=== PATIENT | female | born 2000 | race Two or more races ===

== ENCOUNTER 2020-08-07 12:56 | Emergency (ER) | payer MEDICAID ==
[2020-08-07 13:03] VITALS: BP 146/92
[2020-08-07] MEDS ORDERED: NORMAL SALINE 1000 ML 1,000 ML IV ONE (13:11)
[2020-08-07] MEDS ORDERED: ONDANSETRON 4 MG TAB.RAPDIS PO ONE (13:11)
--- NOTE | 2020-08-07 13:13 | ER Document Report ---
ED Medical Screen (RME) - General Chief Complaint: Nausea/Vomiting Stated Complaint: HEADACHE,VOMITING,DIARRHEA Time Seen by Provider: 08/07/20 13:07 Mode of Arrival: Ambulatory Information source: Patient Notes: 20-year-old female presents to ED for nausea vomiting diarrhea. She states she woke up at 4 AM and she had nausea and vomiting diarrhea. States she was finally able to go back to sleep and she woke up she was hot and cold tried to eat and vomited up a banana. She states she had body aches all over. She states her last menstrual cycle was July 21. She states she is not on any control. Patient is alert oriented respirations regular nonlabored speaking in full sentences. I have ordered blood urine chest x-ray and cover testing. I have also ordered IV fluids and Zofran ODT. I have greeted and performed a rapid initial assessment of this patient. A comprehensive ED assessment and evaluation of the patient, analysis of test results and completion of medical decision making process will be conducted by an additional ED providers. Past Medical History - Social History Chew tobacco use (# tins/day): No Frequency of alcohol use: None Drug Abuse: None Physical Exam - Vital signs Vitals: Temp Pulse Resp BP Pulse Ox 100.0 F 114 H 16 146/92 H 99 08/07/20 13:01 08/07/20 13:01 08/07/20 13:01 08/07/20 13:01 08/07/20 13:01 Course - Vital Signs Vital signs: Temp Pulse Resp BP Pulse Ox 100.0 F 114 H 16 146/92 H 99 08/07/20 13:01 08/07/20 13:01 08/07/20 13:01 08/07/20 13:01 08/07/20 13:01
--- NOTE | 2020-08-07 14:28 | RADIOLOGY REPORT (SQ) ---
EXAM DESCRIPTION: CHEST SINGLE VIEW IMAGES COMPLETED DATE/TIME: 08/07/2020 2:07 pm REASON FOR STUDY: body aches hot and cold COMPARISON: None. EXAM PARAMETERS: NUMBER OF VIEWS: One view. TECHNIQUE: Single frontal radiographic view of the chest acquired. RADIATION DOSE: NA LIMITATIONS: None. FINDINGS: LUNGS AND PLEURA: No opacities, masses or pneumothorax. No pleural effusion. MEDIASTINUM AND HILAR STRUCTURES: No masses. Contour normal. HEART AND VASCULAR STRUCTURES: Heart normal in size. Normal vasculature. BONES: No acute findings. HARDWARE: None in the chest. OTHER: No other significant finding. IMPRESSION: NO ACUTE RADIOGRAPHIC FINDING IN THE CHEST. TECHNICAL DOCUMENTATION: JOB ID: [id number] 2010 [employer]- All Rights Reserved Reading location - IP/workstation name: [email or web address]
== END 2020-08-07 16:00 | disposition left against medical advice (07) ==
LOC: ER 12:56
DX: R11.2 Nausea with vomiting, unspecified (principal); R19.7 Diarrhea, unspecified; R51.9 Headache, unspecified
CPT/HCPCS: 71045; 99281

== ENCOUNTER 2020-09-02 10:42 | Emergency (ER) | payer MEDICAID ==
--- NOTE | 2020-09-02 11:42 | ER Document Report ---
ED General - General Chief Complaint: Cough Stated Complaint: COUGH Time Seen by Provider: 09/02/20 11:31 Notes: 20-year-old female smoker presents with cough shortness of breath and chest pressure for 2 days. Feels wheezy as well. Never use inhaler never diagnosed with asthma. No change to taste or smell and no fever. Past Medical History - General Information source: Patient - Social History Smoking Status: Current Some Day Smoker Smoking Education Provided: Yes - The patient ED visit today was directly related to their abuse of tobacco. Family History: None Patient has homicidal ideation: No Review of Systems - Review of Systems Notes: REVIEW OF SYSTEMS GEN: Denies fever, chills, weight loss ENT: Denies sore throat, nasal discharge, ear pain EYES: Denies blurry vision, eye pain, discharge CV: Denies chest pain, palpitations, edema RESP: Cough shortness of breath and wheezing eezing GI: Denies abdominal pain, nausea, vomiting, diarrhea MSK: Denies joint pain/swelling, edema, SKIN: Denies rash, skin lesions LYMPH: Denies swollen glands/lymph nodes NEURO: Denies headache, focal weakness or numbness, dizziness PSYCH: Denies depression, suicidal or homicidal ideation PHYSICAL EXAMINATION General: No acute distress, well-nourished Head: Atraumatic, normocephalic ENT: Mouth normal, oropharynx moist, no exudates or tonsillar enlargement Eyes: Conjunctiva normal, pupils equal, lids normal Neck: No JVD, supple, no guarding CVS: Normal rate, regular rhythm, no murmurs Resp: End expiratory wheezing bilaterally ilaterally GI: Nondistended, soft, no tenderness to palpation, no rebound or guarding Ext: No deformities, no edema, normal range of motion in upper and lower ext Back: No CVA or midline TTP Skin: No rash, warm Lymphatic: No lymphadeopathy noted Neuro: Awake, alert. Face symmetric. GCS 15. Physical Exam - Vital signs Vitals: Temp Pulse Resp BP Pulse Ox 98.0 F 94 16 141/67 H 99 09/02/20 10:46 09/02/20 10:46 09/02/20 10:46 09/02/20 10:46 09/02/20 10:46 Course - Re-evaluation Re-evalutation: 09/02/20 11:40 Acute bronchitis in setting of smoking Covid PUI rule out but looks well and can go home either way X-ray rules out pneumonia Tessalon albuterol were sent Refused work note I have discussed with the patient there likely diagnosis, aftercare plan, follow-up plans and my usual and customary return precautions. They verbalized understanding of this. - Vital Signs Vital signs: Temp Pulse Resp BP Pulse Ox 98.0 F 108 H 16 128/92 H 95 09/02/20 12:10 09/02/20 12:10 09/02/20 12:10 09/02/20 12:10 09/02/20 12:10 - Diagnostic Test Radiology reviewed: Image reviewed, Reports reviewed Discharge - Discharge Clinical Impression: Viral bronchitis, Tobacco abuse Condition: Good Disposition: HOME, SELF-CARE Instructions: COVID-19 Guidance for Persons Under Investigation, Bronchitis With Bronchospasm (Wheezing) (OM) Prescriptions: Benzonatate [Tessalon Perles 100 mg Capsule] 100 mg PO Q8HP PRN #40 capsule PRN Reason: Albuterol Sulfate [Ventolin Hfa 8 gm Mdi] 2 puff IH Q4 #1 inhaler
[2020-09-02 12:12] VITALS: BP 128/92
--- NOTE | 2020-09-02 12:44 | RADIOLOGY REPORT (SQ) ---
EXAM DESCRIPTION: CHEST SINGLE VIEW IMAGES COMPLETED DATE/TIME: 09/02/2020 12:33 pm REASON FOR STUDY: COUGH, SOB COMPARISON: 08/07/2020 EXAM PARAMETERS: NUMBER OF VIEWS: One view. TECHNIQUE: Single frontal radiographic view of the chest acquired. RADIATION DOSE: NA LIMITATIONS: None. FINDINGS: LUNGS AND PLEURA: No opacities, masses or pneumothorax. No pleural effusion. MEDIASTINUM AND HILAR STRUCTURES: No masses. Contour normal. HEART AND VASCULAR STRUCTURES: Heart normal in size. Normal vasculature. BONES: No acute findings. HARDWARE: None in the chest. OTHER: No other significant finding. IMPRESSION: NO ACUTE RADIOGRAPHIC FINDING IN THE CHEST. TECHNICAL DOCUMENTATION: JOB ID: [id number] 2010 [employer]- All Rights Reserved Reading location - IP/workstation name: [email or web address]
== END 2020-09-02 12:13 | disposition home or self-care (01) ==
LOC: ER 10:42
DX: J20.8 Acute bronchitis due to other specified organisms (principal); R06.02 Shortness of breath; R07.9 Chest pain, unspecified; F17.200 Nicotine dependence, unspecified, uncomplicated
CPT/HCPCS: 71045; 99283

== ENCOUNTER 2020-10-05 15:46 | Emergency (ER) | payer MEDICAID ==
[2020-10-05 15:55] VITALS: BP 136/82
[2020-10-05] MEDS ORDERED: IPRATROPIUM/ALBUTEROL 0.5-2.5 MG/3 ML AMPUL NEB ONE (16:01)
[2020-10-05] MEDS ORDERED: DEXAMETHASONE SOD PHOS INJ 10 MG/1 ML VIAL IM ONE (16:01)
[2020-10-05] MEDS ORDERED: ALBUTEROL SULFATE HFA (90 MCG/PUFF) 8 GM MDI (1 MDI/ER DISP) IH ONE (16:01)
--- NOTE | 2020-10-05 16:02 | ER Document Report ---
ED Medical Screen (RME) - General Chief Complaint: Shortness Of Breath Stated Complaint: SHORTNESS OF BREATH Time Seen by Provider: 10/05/20 15:55 Mode of Arrival: Ambulatory Information source: Patient Physical Exam - Vital signs Vitals: Temp Pulse Resp BP Pulse Ox 98.0 F 89 18 136/82 H 96 10/05/20 15:54 10/05/20 15:54 10/05/20 15:54 10/05/20 15:54 10/05/20 15:54 Course - Vital Signs Vital signs: Temp Pulse Resp BP Pulse Ox 98.0 F 89 18 136/82 H 96 10/05/20 15:54 10/05/20 15:54 10/05/20 15:54 10/05/20 15:54 10/05/20 15:54
--- NOTE | 2020-10-05 16:11 | ER Document Report ---
ED Respiratory Problem - General Chief Complaint: Shortness Of Breath Stated Complaint: SHORTNESS OF BREATH Time Seen by Provider: 10/05/20 15:55 Primary Care Provider: [facility] [Provider Group] - Follow up as needed [facility] [Provider Group] - Follow up as needed [facility] [Provider Group] - Follow up as needed [facility] [Provider Group] - Follow up as needed ELIUD CROWELL MD [ACTIVE STAFF] - Follow up as needed FROILAN PUCKETT MD [ACTIVE STAFF] - Follow up as needed Mode of Arrival: Ambulatory Information source: Patient Notes: 20-year-old female presents to ED for complaint of shortness of breath wheezing. She states she had a similar symptoms about a month ago she was seen in the emergency room got a asthma pump and was much better. She is run out of her asthma pump and has not followed up with her primary care doctor. She states that shortness of breath started again yesterday. She does not have any albuterol inhaler at home. Has not been to her primary doctor she is having bilateral inspiratory and expiratory wheezes. Constitutional: Negative for fever. HENT: Negative for sore throat. Eyes: Negative for visual changes. Cardiovascular: Negative for chest pain. Respiratory: Cough shortness of breath wheezing history of asthma, no congestion no change in sense of smell or taste no symptoms of Covid Gastrointestinal: Negative for abdominal pain, vomiting or diarrhea. Genitourinary: Negative for dysuria. Musculoskeletal: Negative for back pain. Skin: Negative for rash. Neurological: Negative for headaches, weakness or numbness. 10 point ROS negative except as marked above and in HPI. PHYSICAL EXAMINATION: GENERAL: Well-appearing, well-nourished and in no acute distress. HEAD: Atraumatic, normocephalic. EYES: Pupils equal round extraocular movements intact, conjunctiva are normal. ENT: Nares patent NECK: Normal range of motion LUNGS: Nonproductive cough wheezing short of breath Musculoskeletal: Normal range of motion NEUROLOGICAL: Normal speech, normal gait. PSYCH: Normal mood, normal affect. SKIN: Warm, Dry, normal turgor, no rashes or lesions noted. - HPI Patient complains to provider of: Cough, Short of breath Onset: Yesterday Duration: Intermittent episodes Quality of pain: No pain Severity: None Pain Level: Denies Chest pain/discomfort: Tightness Cough: Nonproductive Sputum amount: None Associated symptoms: Short of breath, Wheezing Similar symptoms previously: Yes Recently seen / treated by doctor: No - Related Data Allergies/Adverse Reactions: No Known Allergies Allergy (Unverified 10/05/20 16:15) Past Medical History - General Information source: Patient - Social History Smoking Status: Former Smoker Frequency of alcohol use: None Drug Abuse: None Lives with: Alone Family History: None, Reviewed & Not Pertinent - Past Medical History Cardiac Medical History: Reports: None Pulmonary Medical History: Reports: Hx Asthma EENT Medical History: Reports: None Neurological Medical History: Reports: None Endocrine Medical History: Reports: None Renal/ Medical History: Reports: None Malignancy Medical History: Reports: None GI Medical History: Reports: None Musculoskeletal Medical History: Reports None Skin Medical History: Reports None Psychiatric Medical History: Reports: None Traumatic Medical History: Reports: None Infectious Medical History: Reports: None Surgical Hx: Negative Past Surgical History: Reports: None - Immunizations Immunizations up to date: No Hx Diphtheria, Pertussis, Tetanus Vaccination: No Physical Exam - Vital signs Vitals: Temp Pulse Resp BP Pulse Ox 98.0 F 89 18 136/82 H 96 10/05/20 15:54 10/05/20 15:54 10/05/20 15:54 10/05/20 15:54 10/05/20 15:54 Course - Re-evaluation Re-evalutation: 10/05/20 16:12 We will get chest x-ray give DuoNeb and albuterol inhaler. I will also give her a shot of Decadron. Patient has been instructed adamantly to follow-up with a primary care to get on asthma protocol. Patient has verbalized agreement with this plan. Will reassess after treatment and x-ray. 10/05/20 21:59 She was breathing much easier. X-ray was negative patient was discharged home with the albuterol inhaler and instructed to follow-up with a primary care for her asthma. Patient verbalized understanding and agreement with treatment plan. - Vital Signs Vital signs: Temp Pulse Resp BP Pulse Ox 98.0 F 89 18 136/82 H 96 10/05/20 15:54 10/05/20 15:54 10/05/20 15:54 10/05/20 15:54 10/05/20 15:54 - Diagnostic Test Radiology reviewed: Image reviewed, Reports reviewed Discharge - Discharge Clinical Impression: Asthma Qualifiers: Asthma severity: mild Asthma persistence: intermittent Asthma complication type: with acute exacerbation Qualified Code(s): J45.21 - Mild intermittent asthma with (acute) exacerbation Condition: Stable Disposition: HOME, SELF-CARE Additional Instructions: ASTHMA: You have been diagnosed as having asthma. This is a condition where there is episodic tightness in the bronchial tubes. Allergies, infections, and polluted or cold air may be contributing factors. Emergency treatment of a severe asthma attack may include adrenaline shots, or bronchodilator aerosol. You may feel lightheaded, have a decreased exercise tolerance and a rapid pulse for an hour or two. Rest and get plenty of fluids. Home treatment of asthma requires bronchodilator drugs. These can be administered by injection, inhalation, or by mouth. Antibiotics and corticosteroids may be required for some patients. You should avoid chemical fumes, dusts, pollens, and exercising in very cold or dry air. If you smoke, stop!! If you develop a fever, increased wheezing, chest pain, or severe shortness of breath, you should contact the doctor immediately. STEROID MEDICATION: You have been given an injection of or oral medicine of the cortisone/steroid class. This medication is used to control inflammation or allergy. Jey t is usually only given for a short period of time, until the acute process subsides. There are usually no side effects from short-term use of cortisone-like medications. Some persons feel an increased sense of well-being and are not sleepy at bedtime. Long-term use of cortisone medications is best avoided, unless required for a severe condition. If your condition does not remit, or relapses after the course of corticosteroid medication, you should consult your physician. INHALED BRONCHODILATORS: You have received treatment(s) of and/or prescription for an inhaled bronchodilator -- a medication which stimulates the airways in the lung to dilate. This improves the flow of air in asthma, bronchitis, and emphysema. These medicines have some similarity to adrenaline, and can cause similar side effects: shakiness, racing heart, and a sense of nervousness. These side effects decrease with time. Contact your doctor if these side effects are severe. Do not over-use the medicine. Too-frequent use of the inhaler may make it ineffective. Call your doctor if the inhaler is not controlling your symptoms at the prescribed doses. USE OF ACETAMINOPHEN (Tylenol): Acetaminophen may be taken for pain relief or fever control. It's much safer than aspirin, offering a wider range of "safe" dosages. It is safe during . Some brand names are Tylenol, Panadol, Datril, Anacin 3, Tempra, and Liquiprin. Acetaminophen can be repeated every four hours. The following are maximum recommended dosages: WEIGHT Dose Drops Elixir Chewable(80mg) (LBS.) drprs=droppers tsp=teaspoon 6 40 mg 0.4 ml (1/2) 6-11 80 mg 0.8 ml (full) tsp 1 tab 12-16 120 mg 1 1/2 drprs 3/4 tsp 1 1/2 tabs 17-23 160 mg 2 drprs 1 tsp 2 tabs 24-30 240 mg 3 drprs 1 1/2 tsp 3 tabs 30-35 320 mg 2 tsp 4 tabs 36-41 360 mg 2 1/4 tsp 4 1/2 tabs 42-47 400 mg 2 1/2 tsp 5 tabs 48-53 480 mg 3 tsp 6 tabs 54-59 520 mg 3 1/4 tsp 6 1/2 tabs 60-64 560 mg 3 1/2 tsp 7 tabs 65-70 600 mg 3 3/4 tsp 7 1/2 tabs 71-76 640 mg 4 tsp 8 tabs 77-82 720 mg 4 1/2 tsp 9 tabs 83-88 800 mg 5 tsp 10 tabs >89 pounds or adults 650 mg to 900 mg Acetaminophen can be repeated every four hours. Maximum dose not to exceed 4000 mg a day. These maximum recommended dosages are slightly higher than the dosages written on the product container, but these dosages are very safe and below the toxic dosage for acetaminophen. FOLLOW-UP CARE: If you have been referred to a physician for follow-up care, call the physicians office for an appointment as you were instructed or within the next two days. If you experience worsening or a significant change in your symptoms, notify the physician immediately or return to the Emergency Department at any time for re-evaluation. Forms: Elevated Blood Pressure Referrals: [facility] [Provider Group] - Follow up as needed [facility] [Provider Group] - Follow up as needed [facility] [Provider Group] - Follow up as needed ELIUD CROWELL MD [ACTIVE STAFF] - Follow up as needed FROILAN PUCKETT MD [ACTIVE STAFF] - Follow up as needed [facility] [Provider Group] - Follow up as needed
--- NOTE | 2020-10-05 16:19 | RADIOLOGY REPORT (SQ) ---
EXAM DESCRIPTION: CHEST 2 VIEWS IMAGES COMPLETED DATE/TIME: 10/05/2020 4:12 pm REASON FOR STUDY: Short of breath asthma COMPARISON: 09/02/2020 EXAM PARAMETERS: NUMBER OF VIEWS: two views TECHNIQUE: Digital Frontal and Lateral radiographic views of the chest acquired. RADIATION DOSE: NA LIMITATIONS: none FINDINGS: LUNGS AND PLEURA: No opacities, masses or pneumothorax. No pleural effusion. MEDIASTINUM AND HILAR STRUCTURES: No masses or contour abnormalities. HEART AND VASCULAR STRUCTURES: Heart normal size. No evidence for failure. BONES: No acute findings. HARDWARE: None in the chest. OTHER: No other significant finding. IMPRESSION: NO ACUTE RADIOGRAPHIC FINDING IN THE CHEST. TECHNICAL DOCUMENTATION: JOB ID: [id number] 2010 [employer]- All Rights Reserved Reading location - IP/workstation name: [email or web address]
[2020-10-05] MEDS ORDERED: DEXAMETHASONE SOD PHOSPHATE INJ 4 MG/1 ML VIAL IM ONE (16:30)
== END 2020-10-05 16:37 | disposition home or self-care (01) ==
LOC: ER 15:46
DX: J45.21 Mild intermittent asthma with (acute) exacerbation (principal); R06.02 Shortness of breath; R05 Cough; Z87.891 Personal history of nicotine dependence
CPT/HCPCS: 94640; 99284; 96372; 71046; J1100; J3490

== ENCOUNTER 2020-11-18 22:31 | Emergency (ER) | payer MEDICAID ==
[2020-11-18 22:38] VITALS: BP 141/113
--- NOTE | 2020-11-19 01:15 | ER Document Report ---
Doctor's Note Notes: Patient left prior to being seen. When I arrived to see the patient, I was informed that she had already left.
== END 2020-11-19 01:13 | disposition left against medical advice (07) ==
LOC: ER 22:31
DX: Z53.21 Procedure and treatment not carried out due to patient leaving prior to being seen by health care provider (principal)

== ENCOUNTER 2020-11-19 01:34 | Emergency (ER) | payer MEDICAID ==
[2020-11-19 01:39] VITALS: BP 138/87
[2020-11-19] MEDS ORDERED: ALBUTEROL SULFATE 0.083% NEB 2.5 MG/3 ML AMPUL NEB ONE (01:47)
[2020-11-19] MEDS ORDERED: ALBUTEROL SULFATE HFA (90 MCG/PUFF) 8 GM MDI (1 MDI/ER DISP) IH ONE (01:58)
--- NOTE | 2020-11-19 01:58 | ER Document Report ---
ED General - General Stated Complaint: DIFFICULTY BREATHING Time Seen by Provider: 11/19/20 01:58 - HPI Notes: 20-year-old female presents with shortness of breath. Patient states she has a history of asthma, which is a new diagnosis for her since she moved to [place]. She states that she was here in the emergency department earlier for shortness of breath and wheezing. She states that she felt better and left the emergency department. However when she went home and went to go to bed she began feeling symptomatic in. She is out of her albuterol MDI. She is due to see her primary care doctor tomorrow. Denies fever, chills, productive cough, chest pain, abdominal pain, N/V/D or Covid exposures. - Related Data Allergies/Adverse Reactions: No Known Allergies Allergy (Unverified 10/05/20 16:15) Past Medical History - General Information source: Patient - Social History Smoking Status: Unknown if Ever Smoked Family History: Reviewed & Not Pertinent Pulmonary Medical History: Reports: Hx Asthma - Immunizations Immunizations up to date: No Hx Diphtheria, Pertussis, Tetanus Vaccination: No Review of Systems - Review of Systems Constitutional: denies: Fever EENT: No symptoms reported Cardiovascular: denies: Chest pain Respiratory: Short of breath, Wheezing Gastrointestinal: No symptoms reported Genitourinary: No symptoms reported Female Genitourinary: No symptoms reported Musculoskeletal: No symptoms reported Skin: No symptoms reported Hematologic/Lymphatic: No symptoms reported Neurological/Psychological: No symptoms reported Physical Exam - Vital signs Vitals: Temp Pulse BP Pulse Ox 97.6 F 121 H 138/87 H 95 11/19/20 01:38 11/19/20 01:38 11/19/20 01:38 11/19/20 01:38 - General General appearance: Appears well, Alert In distress: None - HEENT Head: Normocephalic, Atraumatic Extraocular movements intact: Yes Pupils: PERRL - Respiratory Respiratory status: No respiratory distress, Other - Speaking in full sentences. No: Retractions, Tachypnea Breath sounds: Wheezing - Faint end expiratory - Cardiovascular Rhythm: Tachycardia - Receiving neb treatment Heart sounds: Normal auscultation - Abdominal Inspection: No: Obese - Extremities General upper extremity: Normal ROM General lower extremity: Normal ROM - Neurological Neuro grossly intact: Yes Cognition: Normal Orientation: AAOx4 - Psychological Associated symptoms: Normal affect - Skin Skin Temperature: Warm Course - Re-evaluation Re-evalutation: 20-year-old female history of asthma presents with shortness of breath/wheezing, out of albuterol MDI. She received an albuterol inhaler prior to my evaluation. On exam she is alert, nontoxic-appearing, good overall air movement, faint and expiratory wheezing, able to speak in full sentences. States she feels much improved. She is tachycardic but I suspect this to be from the albuterol she has just received. She was provided an albuterol MDI in the emergency department. She has follow-up with PCP in the morning. Return precautions given, stable at time of discharge. - Vital Signs Vital signs: Temp Pulse Resp BP Pulse Ox 97.6 F 121 H 138/87 H 95 11/19/20 01:38 11/19/20 01:38 11/19/20 01:38 11/19/20 01:38 - Laboratory Results Critical Laboratory Results Reviewed: No Critical Results - Radiology Results Critical Radiology Results Reviewed: No Critical Results Discharge - Discharge Clinical Impression: Asthma exacerbation Qualifiers: Asthma severity: unspecified severity Asthma persistence: unspecified Qualified Code(s): J45.901 - Unspecified asthma with (acute) exacerbation Disposition: HOME, SELF-CARE Additional Instructions: Please follow-up with the primary care doctor tomorrow as planned. Please use the albuterol inhaler provided you in the emergency department as needed for shortness of breath. Return to the emergency department for any concerning worsening symptoms.
== END 2020-11-19 02:13 | disposition home or self-care (01) ==
LOC: ER 01:34
DX: J45.901 Unspecified asthma with (acute) exacerbation (principal); R06.02 Shortness of breath; R00.0 Tachycardia, unspecified
CPT/HCPCS: 94640; 99283; J7613; J3490